=== PATIENT | female | born 1990 | race Native Hawaiian/Other Pacific Islander ===

== ENCOUNTER → 2024-06-13 09:25 | Outpatient (CLI) | payer OTHER, SELFPAY ==
[2024-06-13 13:01] LABS: Hemoglobin 11.8 g/dL (12.0-16.0)
[2024-06-13 13:37] LABS: GTT (PREG) 1 Hour PP 50gm Dose 114 mg/dL (76-139)
--- NOTE | 2024-06-13 13:53 | DI.US.S_ITS ---
PROCEDURE: US OB >= 14 WEEKS FETUS INDICATIONS: Anatomoy growth OUTSIDE/PRIOR DATING DATA: Last menstrual period (LMP): 11/01/2023. LMP-based estimated date of delivery (ANNABEL): 08/08/2024. First dating scan (date and location): 04/14/2024. Estimated date of delivery (ANNABEL) from first dating scan: 09/01/2024. TECHNIQUE: Real-time scanning was performed of the fetus, with image documentation and biometric measurements. COMPARISON: [facility], , OB >= 14 WEEKS FETUS, 06/13/2024, 9:13. FINDINGS: General: A single living intrauterine gestation is present. Presentation: Variable. Placenta: Placental position is anterior , without previa. Amniotic fluid index: 18.2 cm, normal range is 5-24 cm. Single deepest vertical pocket is 0.9 cm. heart rate: 139 beats per minute. Maternal cervical canal: 3.8 cm long. Normal lower limit is 2.5 cm. biometrics: Biparietal diameter: 7.2 cm, 28 weeks and 6 days Head circumference: 26.6 cm, 28 weeks and 6 days Abdominal circumference: 25.1 cm, 29 weeks and 2 days Femur length: 5.3 cm, 28 weeks 1 day Clinically estimated gestational age: 28 weeks and 4 days Composite gestational age from present scan: 28 weeks and 6 days Estimated weight and percentile: 1295 g, 48% Anatomic survey: Neuro: Ventricles are non-dilated at less than 10 mm. Cisterna magna is normal at 3-11 mm. Cerebellum is normal in size and morphology. Nuchal skin fold: Normal at less than 6 mm between 14-21 weeks gestational age. Face: Nose and lips, facial profile are normal. Spine: No definite skin defect at the sacral spine, however transverse sacral spine images are suboptimal. Heart: 4-chambered heart is present, with normal ventricular outflow tracts. Diaphragm: Diaphragm is intact. Stomach: Left-sided stomach is present. Kidneys: No hydronephrosis. Normal is less than 5 mm in 2nd trimester, less than 7 mm in 3rd trimester. Cord: 3-vessel cord has orthotopic insertion. Bladder: Normal in size. Extremities: All 4 extremities identified. IMPRESSION: Single living intrauterine gestation at 28 weeks and 4 days. EFW at the 48 percentile. Normal DEMOND. Sacral spine suboptimally imaged, consider follow-up. [facility] anatomy scan performed. Dictated by: Ari Jeffries M.D. on 06/13/2024 at 17:43 Approved by: Ari Jeffries M.D. on 06/13/2024 at 17:48
[2024-06-13 14:48] LABS: Urine N gonorrhoeae NOT DETECTED
[2024-06-13 14:51] LABS: Urine Chlamydia NOT DETECTED
== END ==
PROVIDERS: Referring Provider Obstetrics & Gynecology; Visit Provider Obstetrics & Gynecology
DX: Z34.83 Encounter for supervision of other normal pregnancy, third trimester (principal); Z3A.28 28 weeks gestation of pregnancy
CPT/HCPCS: 76811; 82950; 85014; 85018; 86850; 86900; 86901; 87491; 87591

== ENCOUNTER → 2024-08-10 12:22 | Outpatient (CLI) | payer OTHER, SELFPAY ==
[2024-08-11 08:36] LABS: Strep Grp B PCR POS for Grp B Strep
== END ==
PROVIDERS: Visit Provider Obstetrics & Gynecology
DX: Z34.83 Encounter for supervision of other normal pregnancy, third trimester (principal); Z3A.36 36 weeks gestation of pregnancy
CPT/HCPCS: 87653

== ENCOUNTER 2024-08-31 09:18 | Outpatient (CLI) | payer OTHER, SELFPAY ==
--- NOTE | 2024-08-31 09:27 | DI.US.S_ITS ---
PROCEDURE: US OB LIMITED INDICATIONS: Growth concerns OUTSIDE/PRIOR DATING DATA: Last menstrual period (LMP): 11/01/2023. LMP-based estimated date of delivery (ANNABEL): 08/08/2024. First dating scan (date and location): 04/14/2024. Estimated date of delivery (ANNABEL) from first dating scan: 09/01/2024. The calculations are made using the ultrasound ANNABEL of 09/01/2024. TECHNIQUE: Real-time scanning was performed of the fetus, with image documentation and biometric measurements. Biophysical profile was also obtained. Endovaginal scanning: Not performed COMPARISON: [facility], , OB >= 14 WEEKS FETUS, 06/13/2024, 14:42. FINDINGS: General: A single living intrauterine gestation is present. Presentation: Vertex. Placenta: Placental position is anterior, without previa. Amniotic fluid index: 9.6 cm, normal range is 5-24 cm. Single deepest vertical pocket is 3.6 cm. heart rate: 157 beats per minute. Maternal cervical canal: Not well seen. biometrics: Biparietal diameter: 9.7 cm, 39 weeks 5 days Head circumference: 34.9 cm, 40 weeks 4 days Abdominal circumference: 36.0 cm, 40 weeks 0 days Femur length: 7.8 cm, 39 weeks 5 days Clinically estimated gestational age: 39 weeks 6 days Composite gestational age from present scan: 40 weeks 0 days Estimated weight and percentile: 3940 g, 78th percentile Biophysical profile: Tone: 2 points. Movement: 2 points. Respiration: 2 points. Largest pocket of fluid: 2 points. IMPRESSION: 1. Bonner living intrauterine at 40 weeks 0 days based on today's ultrasound. Fetus is in the 78th percentile for weight. Vertex position. 2. Normal placenta and amniotic fluid. 3. Normal biophysical profile. Score 8/8. We strive to produce accurate, complete, and clear reports of imaging services. To assist us in improving patient care, this report was composed using standard report templates and voice recognition software. Therefore, it may contain abnormal punctuation, insertions and/or omissions. Occasional wrong-word or sound-alike substitutions may occur. Though we review the report and make efforts to correct it, we do recommend that the report be read carefully in proper context to recognize any text inaccuracies. Dictated by: Hudson Arellano M.D. on 08/31/2024 at 10:18 Approved by: Hudson Arellano M.D. on 08/31/2024 at 10:32
== END 2024-08-31 10:34 | disposition home or self-care (01) ==
LOC: LABOR 10:02 → OB 09-03 06:19
PROVIDERS: Referring Provider Obstetrics & Gynecology; Visit Provider Obstetrics & Gynecology
DX: O26.893 Other specified pregnancy related conditions, third trimester (principal); R10.2 Pelvic and perineal pain; Z3A.39 39 weeks gestation of pregnancy
CPT/HCPCS: 59025; 76815; 76819; G0378; G0379

== ENCOUNTER 2024-09-03 11:58 | Inpatient (IN) | payer OTHER, SELFPAY ==
[2024-09-03 14:44] LABS: Add Manual Diff / Slide Review NO; Basophils Absolute Auto 0 /uL (0-100); Basophils Percent Auto 0.1 % (0-2); Eosinophils Absolute Auto 100 /uL (0-450); Eosinophils Percent Auto 1.3 % (2-4); Hematocrit 40.5 % (36-46); Hemoglobin 13.2 g/dL (12.0-16.0); Lymphocytes Absolute Auto 1700 /uL (1100-4500); Lymphocytes Percent Auto 16.8 % (25-40); Mean Corpuscular HGB Conc 32.6 % (30-36); Monocytes Absolute Auto 700 /uL (0-900); Monocytes Percent Auto 7.1 % (3-14); Neutrophils Absolute Auto 7400 /uL (1500-7000); Neutrophils Percent Auto 74.7 % (50-75); Platelet Count 255 X10^3/uL (150-400); Red Blood Cell Count 5.07 X10^6/uL (4.0-5.2); Red Cell Distribution Width 14.4 % (11.6-14.8); White Blood Cell Count 9.9 X10^3/uL (4.5-11.0)
--- NOTE | 2024-09-03 18:26 | P.HPOB_ITS ---
OB HPI Date/Time Date of admission: 09/03/24 Date Patient Seen: 09/03/24 Time Patient Seen: 13:00 History of Present Condition Chief complaint: term labor ANNABEL Calculator 2 Estimated Delivery Date Method Current WG Current Estimate 09/01/24 Ultrasound #1 40w 3d Other Estimates 08/07/24 LMP (Certain) 44w 0d : 2 Para: 1 care: limited care (limited PNC prior to transfer ) Dating criteria OB: based on 2nd trimester US only Ultrasounds: normal mid trimester US Obstetrical complications: none Medical complications OB: none External History Prior Pregnancies: G1 - VAVD 5#8oz, 3rd degree OASIS : 2 Para: 1 Indications Other reason(s) for admission: augmentation of term labor Preadmission Labs Last OB Lab Results: 2 Blood Type AB Positive 09/03/24 13:30 Antibody Screen Negative 09/03/24 13:30 Hct 40.5 % (36-46) 09/03/24 13:30 Hgb 13.2 g/dL (12.0-16.0) 09/03/24 13:30 Glucose 1 Hr 50 gm 114 mg/dL (76-139) 06/13/24 10:58 Group B Strep (PCR) Pos for grp b strep H 08/10/24 12:30 -: Chlamydia screen: negative, Gonorrhea screen: negative and Urine: negative External Labs -: Urine: negative Prior (ies) Past Pregnancies Del. Date GA/Weeks Labor Lgth Wt Sex Route Outcome Anesthesia Place Delv Breastfeed Preg Comp Name 03/06/14 41 48 5 lb 8.185 oz Male vaginal vacuum live - full term none [facility] 6 months other [place] Delivery Date: 03/06/14 Last Updated by: Miguelina Weinberg, RN 3rd degree laceration Evaluation Evaluation Baseline heart rate: 140 Variability: Moderate (11-25) Monitor Decelerations: Absent Uterine Contraction Intensity: Mild Category of Tracing: Reactive Status: Category l Dilation (cm): 2 Effacement (%): 50 Dilation: 1-2 cm Effacement: 40-50% station: -3 Position of cervix: mid Consistency: soft Virk score: 5 PFSH Medical History (Updated 08/17/24 @ 10:47 by Damián Leon MD) Keloid scar Vitamin D deficiency Migraine Malaria Surgical History (Updated 06/11/24 @ 15:07 by Miguelina Weinberg RN) History of skin surgery Social History marital status: number of children: 1 (lives w/ sister in [facility]) household members: spouse lives independently: Yes caregiver/support person: No housing: apartment pets and animals: Yes (indoor cats) education level: college (bachelor's degree) 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) current occupational exposures/hazards: No special mahesh needs: No travel history: recent (only between and [place]) seatbelt use: always helmet use: Yes water heater temp set < 120 deg: Yes working smoke detector in home: Yes fire extinguisher in home: Yes carbon monox detector in home: Yes firearms in home: Yes firearms unloaded and locked: No (hidden away in closet) do you feel safe at home: Yes Smoking Status: Never smoker second hand exposure: No alcohol intake: former (~2-4 beers or glasses wine/week when not ) substance use type: does not use during the past year weight has: other (stable prior to , ~50 lb weight gain so far this ) well-balanced diet: about half the time daily servings fruits/ve-4 caffeine: Yes (occasional single cup coffee (~1/week)) Type(s) of exercise: walking additional social history: Pt's parents are physicians in [facility], father is a GP and mother is a pediatric speech therapist. Pt's other child (~10 years old) is living with her family back home in [facility]. Pt immigrated to [place] a few years ago, only came to [place] in the last couple of weeks. She was unable to get in for routine care in [place], but reports that she did have NOB labs as well as anatomy US at ~18 weeks and has a copy of these records on a flash drive; will try to sign up for portal and attach to a portal message or will bring the drive with her to her visit on Tuesday. Urgent fax message sent to [facility] in requesting all records. 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 Meds Home Medications and Allergies Home Medications Medication Instructions Recorded Confirmed Type vitamin-ferrous sulfate tab PO 06/11/24 08/31/24 History 27 mg iron-folic acid 0.8 mg tablet breast pump #1 ea 08/17/24 08/31/24 Rx Allergies Allergy/AdvReac Type Severity Reaction Status Date / Time No Known Drug Allergies Allergy Unverified 08/31/24 08:54 Review of Systems Review of Systems ROS: Yes All systems reviewed with the patient and are negative except as otherwise documented OB Exam Vital signs Blood Pressure: 120/60 Pulse Rate: 84 Respiratory Rate: 18 Temperature: 97.5 F HENMT Head: normal to inspection Resp Effort & Inspection: normal respiratory effort and able to speak in complete sentences Cardio Rate: regular rate Rhythm: regular rhythm Extremities Lower extremity: Yes normal to inspection GI Inspection: normal to inspection Other: gravid, sandy cephalic, 8.5-9# presentation confirmed with bedside US External Female Exam: Yes normal external appearance Objective Labs 09/03/24 13:30 Labs: Laboratory Results - last 24 hr 09/03/24 13:30 WBC 9.9 RBC 5.07 Hgb 13.2 Hct 40.5 MCV 80.0 MCH 26.0 MCHC 32.6 RDW 14.4 Plt Count 255 Neut % (Auto) 74.7 Lymph % (Auto) 16.8 L [place] % (Auto) 7.1 Eos % (Auto) 1.3 L Baso % (Auto) 0.1 Neut # (Auto) 7400 H Lymph # (Auto) 1700 [place] # (Auto) 700 Eos # (Auto) 100 Baso # (Auto) 0 Blood Type AB Positive Antibody Screen Negative Assessment and Plan Assessment and Plan Assessment and Plan narrative: 33yo at 40w2d by 20wk US presents in early late term labor Labor Maternal VSS/Cat 1 tracing okay for intermittent monitoring, amenable to augmentation if no interval cervical change at time of next SVE (4-6h) GBS+, start abx once active labor achieved noted high station, encourage position changes to assist with descent Patient is consented for vaginal, vaginal operative and delivery. She additionally consents to transfusion of blood products as medically indicated. anticipate vaginal delivery Time-Based Coding :: [TOTAL MINUTES] spent with patient and on the chart (including review of chart, obtaining history, exam, reviewing outside data, placing orders, documenting exam and treatment plan, and counseling patient) on [DATE].
[2024-09-03] MEDS: LACTATED RINGERS 1,000 ML 100 ML IV (18:43)
[2024-09-03] MEDS: OXYTOCIN PREMIX 30 UNIT/500 ML PLAST..BAG IV (18:44)
[2024-09-03 19:18] VITALS: BP 108/69
[2024-09-04] MEDS: LACTATED RINGERS 1,000 ML 100 ML IV ×2 (02:18→09:59)
--- NOTE | 2024-09-04 07:52 | PM.OBPNLAB ---
Date/Time Date Patient Seen: 09/04/24 Time Patient Seen: 07:52 Pain Control Pain control: tolerating well Comments: pitocin up-titrated to 14 overnight NAEON per RN no abx started as no active labor, maternal VSS/afebrile, Cat 1 tracing Pelvic Exam Dilation (cm): 2 Effacement (%): 30 station: -3 Amniotic membrane status: Intact Comments: non-engaged head Contractions Contractions on admission: regular Monitor mode: External Pitocin rate (mU/min): 14 Contraction frequency (min): 5 Contraction duration (min): 1 Contraction pattern: Regular Contraction intensity: Moderate Status status: Category l Heart Rate Baseline: 140 Monitor Accelerations: Present Monitor Decelerations: Absent Monitor Variability: Moderate Assessment and Plan Plan: Comments: 33yo at 40w3d by 20wk US, HD2 following admission for augmentation of late-term labor Failure to progress No interval cervical change despite >12h pitocin augmentation with adequate pattern patient counseled on consideration of AROM for further augmentation following adequate antibiosis versus proceeding to primary section in setting of suspected LGA , h/o maternal OASIS in G1 who weighed <6# at In shared decision making model patient desires to proceed with primary section, failure to progress in early latent labor, suspected macrosomia OR notified, anticipate procedure at 11:15am due to staffing availability unless intervening change in maternal/ status dc pitocin, NPO, continue CEFM/toco for surveillance
[2024-09-04 12:06] VITALS: BP 120/60; PULSE 84; RESP 18; TEMP 36.4
[2024-09-04] MEDS: CITRIC ACID/SODIUM CITRATE 15 ML SOLUTION 30 ML PO (13:23)
[2024-09-04] MEDS: CEFAZOLIN 2 GM/100 ML PREMIX 100 ML IV (14:23)
[2024-09-04] MEDS: ACETAMINOPHEN IV 1,000 MG/100 ML VIAL 400 MG IV (14:27)
[2024-09-04] MEDS: LACTATED RINGERS 1,000 ML 42 ML IV (14:45)
--- NOTE | 2024-09-04 14:49 | SUR.OPER ---
Supine on Padded OR bed, head on pillow, safety belt at thigh, arms secured on padded arm boards at <90 degrees abduction. Bump under right buttock. Legs uncrossed with pillow under knees, gel pad to heels, tape over blanket to lower legs.
[2024-09-04 15:48] VITALS: BP 109/69; PULSE 66; RESP 19; TEMP 36.3; O2SAT 100
[2024-09-04 15:53] VITALS: BP 113/59; PULSE 72; RESP 17; O2SAT 100
--- NOTE | 2024-09-04 15:55 | PM.OP.1 ---
Operative Date/Time/Diagnoses Date of procedure: 09/04/24 Time of procedure: 15:55 Pre-op diagnosis: failure to progress Post-op diagnosis: same Procedure & Clinicians Procedure: primary low transverse section Same procedure as scheduled: Yes Indications: 1) IUP at 40w3d 2) failure to progress in first stage Surgeon: Renee Espinoza [employer] Technician: Heavenly Lester Click Yes if Unassisted: No Anesthesia Type: Spinal Operative Notes Findings: live born male in cephalic presentation grossly normal uterus, bilateral adnexae Estimated Blood Loss (mL): 1,000 Procedure in detail: Pt was taken to the operating room and transferred to OR table.? The spinal was placed per anesthesia.? The patient was placed in the supine position, prepped and draped in a sterile fashion.? Prior to incision the level of anesthesia was rechecked and found to be adequate.? A timeout was once again performed. A pfannensteil incision was made 2cm superior to the pubic symphysis.? This incision was carried down sharply to the level of the rectus fascia.? The fascia was incised sharply with knife and the incision was extended bilaterally and superiorly using sosa scissors. The superior border of the fascia was elevated with two Bhargavi clamps and bluntly dissected off of the rectus muscles followed by incision of the median raphe with the sosa scissors.? Attention was then turned to the inferior border of the fascia which was dissected away from the underlying musculature in a similar manner down to the level of the pubic symphysis.? The rectus muscles were then in the midline and the peritoneum was identified.? The peritoneum was entered bluntly under direct visualization.? The peritoneal opening was then extended manually.? The slitter cut off operator?s hand was inserted in the abdomen and the uterus was found to be in a levo-rotated position. The bladder blade was then inserted. The vesicouterine peritoneum was identified, elevated using DeBakey forceps and incised in the midline using Metzenbaum scissors.? The incision was carried laterally and superiorly bilaterally.? A bladder flap was further developed digitally and the bladder blade was replaced.? Next, a low transverse incision was made in the uterus using the knife.? The incision was extended laterally and superiorly bilaterally bluntly.? The slitter cut off operator?s hand was then inserted into the uterus to find an in the vertex OP position.? The bladder blade was removed and ?s vertex was grasped, flexed and brought to the incision where the was delivered atraumatically using fundal pressure.? The cord was doubly clamped and cut.? The infant was then passed to waiting pediatricians.? The placenta was delivered via gentle traction with additional manual extraction as necessary; the placenta was then passed off the field. ? The uterus was exteriorized and the uterine cavity was wiped of all clots and debris.? The bladder blade was reinserted and the hysterotomy incision was repaired with #0 vicryl in a running locked fashion, followed by a second #0 vicryl in an imbricating fashion.? A midline tear in the uterine serosa was identified with persistent bleeding, oversewn with figure of 8 x2 with subsequent hemostasis noted. Tubes, ovaries and adnexae were visualized and noted to be grossly normal in appearance.? The uterus was replaced into the abdomen without difficulty and the hysterotomy was noted to be hemostatic off of tension.? PerClot placed for additional hemostasis prophylaxis. The rectus fascia was closed using #1 vicryl in a running fashion.? The incision was irrigated and hemostasis was achieved using the bovie.? The subcutaneous space was reapproximated using plain gut suture in a running fashion.? The skin was closed using 4-0 monocryl followed by application of steristrips and abdominal compression dressing.? All counts were correct x2.? The pt tolerated the procedure well and without difficulty. Fundal contents were expressed and fundus noted to be firm, level noted prior to patient transfer to PACU in stable condition.? Complications: none Post-operative Condition: stable Disposition: PACU Plan for aftercare: routine /postoperative care
[2024-09-04 15:58] VITALS: BP 120/70; PULSE 86; RESP 20; O2SAT 100
[2024-09-04 16:05] VITALS: BP 108/77; PULSE 71; RESP 16; TEMP 36.1; O2SAT 100
[2024-09-04 21:41] LABS: Add Manual Diff / Slide Review NO; Basophils Absolute Auto 0 /uL (0-100); Basophils Percent Auto 0.2 % (0-2); Eosinophils Absolute Auto 0 /uL (0-450); Eosinophils Percent Auto 0.1 % (2-4); Hematocrit 32.6 % (36-46); Hemoglobin 10.7 g/dL (12.0-16.0); Lymphocytes Absolute Auto 800 /uL (1100-4500); Lymphocytes Percent Auto 5.9 % (25-40); Mean Corpuscular HGB Conc 32.8 % (30-36); Mean Corpuscular Volume 79.3 fL (80-100); Monocytes Absolute Auto 700 /uL (0-900); Neutrophils Absolute Auto 11800 /uL (1500-7000); Neutrophils Percent Auto 88.8 % (50-75); Platelet Count 204 X10^3/uL (150-400); Red Blood Cell Count 4.11 X10^6/uL (4.0-5.2); White Blood Cell Count 13.3 X10^3/uL (4.5-11.0)
[2024-09-04] MEDS: KETOROLAC 30 MG/ML VIAL IV (21:42)
[2024-09-05] MEDS: KETOROLAC 30 MG/ML VIAL IV ×2 (04:02→10:11)
[2024-09-05] MEDS: LANOLIN OINT 7 GM 1 APPLIC TOP (09:25)
[2024-09-05 09:27] VITALS: TEMP 36.6
[2024-09-05] MEDS: ACETAMINOPHEN 325 MG TABLET 650 MG PO ×3 (09:27→22:08)
[2024-09-05] MEDS: PRENATAL VIT,CALC/IRON/FOLIC 1 TABLET 1 TAB PO (09:27)
[2024-09-05 10:11] VITALS: TEMP 36.6
--- NOTE | 2024-09-05 17:24 | P.PNOB_ITS ---
Subjective - OB Subjective Patient comments: no complaints and pain well controlled (with Tylenol and Ibuprofen) baby status: doing well and nursing well [place] feeding status: exclusively breast feeding Date Patient Seen: 09/05/24 Time Patient Seen: 11:30 Interval history: POD #1 s/p primary C section for a stage 1 arrest of labor. Has not voided yet. Catheter removed at 0630 am. Pain well controlled with Tylenol and Ibuprofen. Bleeding tapering. Passing flatus. Exam Vital Signs (past 8 hours): - 09/05/24 09:27 09/05/24 10:11 Temperature 97.8 F 97.8 F Oxygen Delivery Method Room Air Oxygen Flow Rate 0 Narrative Exam Narrative: Gen: Patient sitting up in bed, NAD Lungs: CTA bilat CV: RRR Abd: Appropriately tender. Fundus: Firm at U Incision: C/D/I with bandage Ext: Trace edema, negative Sai's Objective Labs 09/04/24 21:33 Labs: Laboratory Results - last 24 hr 09/04/24 21:33 WBC 13.3 H RBC 4.11 Hgb 10.7 L Hct 32.6 L MCV 79.3 L MCH 26.0 MCHC 32.8 RDW 14.0 Plt Count 204 Neut % (Auto) 88.8 H Lymph % (Auto) 5.9 L [place] % (Auto) 5.0 Eos % (Auto) 0.1 L Baso % (Auto) 0.2 Neut # (Auto) 28573 H Lymph # (Auto) 800 L [place] # (Auto) 700 Eos # (Auto) 0 Baso # (Auto) 0 Assessment & Plan Plan day: 1 plan OB: routine postop care Comments: Have patient try to void in the next 30min, if not able, straight cath Ambulate Anticipate discharge 09/06/24 Time-Based Coding :: [TOTAL MINUTES] spent with patient and on the chart (including review of chart, obtaining history, exam, reviewing outside data, placing orders, documenting exam and treatment plan, and counseling patient) on [DATE].
[2024-09-05] MEDS: IBUPROFEN 600 MG TABLET PO ×2 (17:36→23:46)
[2024-09-06] MEDS: ACETAMINOPHEN 325 MG TABLET 650 MG PO ×3 (03:58→18:49)
[2024-09-06] MEDS: IBUPROFEN 600 MG TABLET PO ×2 (06:23→14:57)
[2024-09-06 10:19] VITALS: TEMP 36.8
[2024-09-06] MEDS: PRENATAL VIT,CALC/IRON/FOLIC 1 TABLET 1 TAB PO (10:19)
[2024-09-06] MEDS: DOCUSATE 100 MG CAPSULE 200 MG PO (10:29)
--- NOTE | 2024-09-06 16:38 | P.DS_ITS ---
Discharge Providers Provider Date of admission: 09/03/24 11:58 Discharge Date: 09/06/24 Primary care physician: Doctor Franchesca MD Consults: 09/03/24 14:14 Consult to Anesthesiology Urgent Comment: Consulting Provider: Anesthesiologist Reason for consultation: Epidural 09/04/24 16:56 Consult to Automation Machine Builder Routine Comment: Discharge provider: Damián Leon MD Summary Hospital Course Date Patient Seen: 09/06/24 Time Patient Seen: 09:00 Diagnoses: Intrauterine , 40+ 3 weeks, delivered by primary section macrosomia Secondary arrest of descent and dilatation in the 1st stage GBS positive status Hospital Course: Louise was admitted at 40+ 2 weeks gestational age and received Pitocin augmentation of her labor for greater than 24 hours. Unfortunately the vertex never descended into the pelvis and after counseling regarding all available options for delivery, patient underwent a primary section for failed induction /failure to progress of the 1st stage on 09/04/2024. She delivered a viable male infant with a weight of a proximally 9 lb by low transverse cervical . Following delivery both mother and baby have done extremely well with the mother experiencing prompt return of bowel and bladder function, she is ambulating independently, tolerating regular diet, and her pain is well controlled with oral pain medication. She will be discharged at this time to home in an afebrile normotensive condition after counseling regarding precautionary symptoms, limitations activity, medications, and plans for follow- up which will be in 1 week. Medications will include resumption of all preadmission medications as well as oxycodone 5 mg every 4 hours as needed for pain, dispense 20 with no refills, and ibuprofen 600 mg p.o. q.6 hours as needed for pain. Peripartum Data Delivery Method: Section Laceration Description: None Episiotomy description: None Procedures: Spinal block anesthetic Primary section (low transverse cervical) complications: none Rhodell 1: Gender: Male Disposition of : home Status at Discharge Cognitive/behavioral status at discharge: oriented Functional status at discharge: independent ambulation Overall status at discharge: patient is progressing back to baseline Time Spent with Patient Time attestation: Total time spent providing and/or coordinating discharge services: Time spent: Less than 30 minutes Objective Labs 09/04/24 21:33 Exam Vital Signs (past 8 hours): - 09/06/24 10:19 Temperature 98.2 F Oxygen Delivery Method Room Air Oxygen Flow Rate 0 Const General: cooperative and comfortable Nutritional Appearance: average body habitus Orientation: alert and oriented x3 HENMT Head: normal to inspection, atraumatic and abrasion Ears: hearing grossly normal bilaterally Face and sinus: face symmetric Eyes General: appearance normal, both eyes and all related structures Conjunctivae: conjunctivae normal Sclera: sclerae normal EOM: EOM intact bilaterally Neck Neck: normal visual inspection Resp Effort & Inspection: normal respiratory effort and able to speak in complete sentences Auscultation: clear to auscultation bilaterally Cardio Rate: regular rate Rhythm: regular rhythm Heart Sounds: S1 normal, S2 normal and no murmurs GI Inspection: normal to inspection and incision (Surgical dressing clean and dry) Palpation: soft, no hepatosplenomegaly and tender (Mild, diffuse postsurgical tenderness) External Female Exam: other (No significant bleeding noted) Extrem General: no calf tenderness Psych Appearance: grossly normal Mental Status: mental status grossly normal Speech and Movement: speech and movement normal Mood: congruent mood Affect: normal affect Attitude: cooperative Thought Process: normal Thought Content: normal Judgment: judgment good Discharge Plan Discharge Plan Patient Disposition: Home Provider Discharge Comment: Please review the written instructions you received when you were discharged from the hospital. Your follow-up appointment will be scheduled for 1 week after your delivery and I look forward to seeing you then. If however you have any issues, concerns, or questions, please contact the office either by phone at [phone], or via the patient portal. Discharge orders & Medications Prescriptions: New ibuprofen 600 mg Tablet 600 mg PO Q6H Qty: 30 2RF oxycodone 5 mg Tablet 5 mg PO Q4H PRN (Reason: Pain, Moderate (4-6)) Qty: 20 0RF Continued vit-ferrous sulfat-FA 27 mg iron- 0.8 mg tablet PO No Action (DME) breast pump Device See Rx Instructions .ROUTE .MEDSUPPLY Qty: 1 0RF Rx Instructions: double electric breast pump Follow up/Referrals: Miscellaneous,Doctor, [Primary Care Provider] - Damián Leon MD [Physician] - 6 Weeks (Please follow up for a one week incision check on 09/11 @ 1030 am. Please follow up for a 6 week check up on 10/16 @ 1000am. ) Discharge Health Status Multidrug resistant organism: No MDRO Diet/Activity/Treatments Diet: Diet as Tolerated Activity: As tolerated Other treatments: Rbok-pea-eyflazb Tylenol may be used for additional pain relief. Vdti-hwf-dnvhnqf stool softeners and/or MiraLax may be used as needed for constipation. Skin/Wound/Dressing Care Report to your healthcare provider any signs of infection, such as:: chills, fever, increased pain, unusual drainage and unusual redness Dressing: Dressing will be removed at the time of your one-week postop visit Visit Report/Discharge Packet Instructions: DI for , DI for and Nipple Soreness, DI for Prescription Opioid Use Stand Alone Forms: Discharge: Care, Patient Portal/API, Stroke Signs & Symptoms Discharge Data Primary Care Provider: Miscellaneous,Doctor
== END 2024-09-06 19:51 | disposition home or self-care (01) | DRG 788 ==
PROVIDERS: Obstetrics & Gynecology; Admitting Provider Obstetrics & Gynecology; Referring Provider Obstetrics & Gynecology; Visit Provider Obstetrics & Gynecology
PROC: 10D00Z1 Extraction of Products of Conception, Low, Open Approach (ICD-10-PCS; CPT 59514; principal; 2024-09-04 11:30)
DX: O61.0 Failed medical induction of labor (principal); O62.1 Secondary uterine inertia; Z3A.40 40 weeks gestation of pregnancy; Z37.0 Single live birth
CPT/HCPCS: 36415; 59050; 85025; 86850; 86900; 86901; G0379; J0134; J0690; J1100; J1885; J2274; J2405; J2590

== ENCOUNTER 2025-06-30 22:26 | Emergency (ER) | payer OTHER, SELFPAY ==
[2025-06-30] VITALS (7 sets, daily range): BP systolic 120–123; BP diastolic 63–83; PULSE 67–78; RESP 16–25; TEMP 36.8; O2SAT 99–100; BMI 32.9
--- NOTE | 2025-06-30 22:32 | EKG_ITS ---
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
--- NOTE | 2025-06-30 23:10 | DI.RAD.S_ITS ---
PROCEDURE: XR CHEST 2V INDICATIONS: chest pain, cough TECHNIQUE: 2 views of the chest were acquired. COMPARISON: None. FINDINGS: Surgical changes and devices: None. Lungs and pleura: Lungs are clear. No pleural effusions or pneumothorax. Mediastinum: Mediastinal contours are normal. Heart size is normal. Bones and chest wall: No suspicious bony abnormalities. Soft tissues appear unremarkable. IMPRESSION: No acute cardiopulmonary abnormality is seen. Dictated by: Navi Church M.D. on 06/30/2025 at 23:55 Approved by: Navi Church M.D. on 06/30/2025 at 23:55
[2025-06-30 23:14] LABS: Add Manual Diff / Slide Review NO; Hematocrit 39.4 % (36-46); Hemoglobin 13.1 g/dL (12.0-16.0); Lymphocytes Absolute Auto 3300 /uL (1100-4500); Mean Corpuscular HGB Conc 33.3 % (30-36); Mean Corpuscular Hemoglobin 25.0 PG (26-34); Mean Corpuscular Volume 75.1 fL (80-100); Platelet Count 249 X10^3/uL (150-400)
[2025-06-30 23:19] LABS: Strep Grp A by PCR Rapid Negative (Negative)
[2025-06-30 23:20] LABS: INR 1.1 (0.9-1.3); Prothrombin Time 12.2 SECONDS (9.4-12.5)
--- NOTE | 2025-06-30 23:22 | PC.NURSE ---
Pt ambulatory to imaging with imaging clerk
[2025-06-30 23:23] LABS: PTT Partial Thromboplastin Tim 30 SECONDS (25.1-36.5)
[2025-06-30] MEDS: KETOROLAC 30 MG/ML VIAL 15 MG IV (23:25)
[2025-06-30 23:27] LABS: Alanine Aminotransferase 31 IU/L (<35); Albumin 4.5 g/dL (3.5-5.0); Albumin Globulin Ratio 1.2 (1.0-2.8); Alkaline Phosphatase 57 U/L (38-126); Blood Urea Nitrogen 10 mg/dL (7-17); Calcium 9.3 mg/dL (8.4-10.2); Carbon Dioxide 27 mmol/L (22-32); Chloride 102 mmol/L (98-107); Creatine Kinase 135 U/L (30-135); Estimated Glomerular Filt Rate > 60 mL/min (>60); Globulin 3.9 g/dL (1.7-4.1); Glucose 110 mg/dL (70-99); HEMOLYSIS 17 (0-50); Lipase 236 U/L (23-300); Magnesium 1.6 mg/dL (1.6-2.3); Potassium 3.8 mmol/L (3.4-5.1); Sodium 136 mmol/L (137-145); Total Protein 8.4 g/dL (6.3-8.2)
[2025-06-30 23:39] LABS: NT-proBNP (BNP-Adult 18+) < 20 pg/mL (<125); Troponin I < 0.012 ng/mL (0.01-0.034)
[2025-06-30 23:51] LABS: Influenza A - CEPHEID Flu A NEGATIVE (NEGATIVE); Influenza B - CEPHEID Flu B NEGATIVE (NEGATIVE)
[2025-06-30 23:52] LABS: COVID-19 CEPHEID 4-PLEX PCR Negative (Negative)
[2025-07-01] VITALS: BP 110/77
[2025-07-01 00:02] VITALS: PULSE 69; RESP 19; O2SAT 100
--- NOTE | 2025-07-01 00:16 | ED.CHESTPAIN ---
HPI - Chest Pain General Chief Complaint: Chest Pain Stated Complaint: ChestPain, L shoulder Pain Time Seen by Provider: 06/30/25 22:46 Source: patient Mode of arrival: Ambulatory Limitations: no limitations History of Present Illness HPI narrative: 34-year-old female with no cardiac history presents with left-sided sharper chest pain that has been persistent along with left scapula area pain that has been persistent for the past 2 days and does not seem to go away. She denies any shortness of breath but has had a cough since the pain has initiate as well. She denies any other symptoms. Related Data Home Medications ?Medication ?Instructions ?Recorded ?Confirmed vitamin-ferrous sulfate tab PO 06/11/24 09/11/24 27 mg iron-folic acid 0.8 mg tablet Previous Rx's ?Medication ?Instructions ?Recorded breast pump #1 ea 08/17/24 Allergies Allergy/AdvReac Type Severity Reaction Status Date / Time No Known Drug Allergies Allergy Unverified 06/30/25 22:48 Review of Systems Review of Systems ROS Unobtainable: All systems reviewed & are unremarkable except as noted in HPI and below Patient History Medical History (Updated 07/01/25 @ 01:54 by Samy oMntiel MD) Keloid scar Vitamin D deficiency Migraine Malaria Surgical History (Updated 06/11/24 @ 15:07 by Miguelina Weinberg RN) History of skin surgery Social History marital status: number of children: 1 (lives w/ sister in [place] [facility]) household members: spouse lives independently: Yes caregiver/support person: No housing: apartment pets and animals: Yes (indoor cats) education level: college (bachelor's degree) occupational status: previously employed (worked in a [employer] home) current occupational exposures/hazards: No special mahesh needs: No travel history: recent (only between and [place]) seatbelt use: always helmet use: Yes water heater temp set < 120 deg: Yes working smoke detector in home: Yes fire extinguisher in home: Yes carbon monox detector in home: Yes firearms in home: Yes firearms unloaded and locked: No (hidden away in closet) do you feel safe at home: Yes Smoking Status: Never smoker second hand exposure: No alcohol intake: former (~2-4 beers or glasses wine/week when not ) substance use type: does not use during the past year weight has: other (stable prior to , ~50 lb weight gain so far this ) well-balanced diet: about half the time daily servings fruits/ve-4 caffeine: Yes (occasional single cup coffee (~1/week)) Type(s) of exercise: walking additional social history: Pt's parents are physicians in [facility], father is a GP and mother is a fabric sourcer. Pt's other child (~10 years old) is living with her family back home in [place] [facility]. Pt immigrated to [place] a few years ago, only came to [place] in the last couple of weeks. She was unable to get in for routine care in [place], but reports that she did have [facility] labs as well as anatomy [place] at ~18 weeks and has a copy of these records on a flash drive; will try to sign up for portal and attach to a portal message or will bring the drive with her to her visit on Tuesday. Urgent fax message sent to [facility] in requesting all records. 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 Smoking Status: Never smoker Exam Narrative Exam Narrative: General: Patient appears to be in no acute distress, acting appropriately Head: normocephalic, atraumatic, HEENT: Pupils equal round reactive, eyes tracking well, neck supple, no JVD Heart: regular rate and rhythm, no murmurs, rubs, or gallops heard Lungs: clear to auscultation, no adventitious sounds Abdomen: soft , nontender, nondistended, positive bowel sounds Neurological: no focal neurological signs, moving all extremities well, alert and oriented x3, Psych: good judgment ,good insight, mood is normal. Initial Vital Signs Initial Vital Signs: Vital Signs Pulse Rate 78 06/30/25 22:43 Pulse Oximetry 99 06/30/25 22:43 Scores HEART Score Heart Score history: Slightly Suspicious Heart Score EKG: Normal Heart Score Age: < 45 years old Heart Score risk factors: No known risk factors Heart Score troponin: < or = to normal limit Heart Score Total: 0 Course Orders Ordered: ED Orders 06/30/25 22:32 EKG-12 Lead Stat 06/30/25 22:52 EKG-12 Lead Stat 06/30/25 23:04 Complete Blood Count AUTO DIFF Stat Comprehensive Metabolic Panel Stat Lipase Stat Magnesium Stat NT-proBNP (BNP-Adult 18+) Stat PTT Partial Thromboplastin Brennan Stat Prothrombin Time INR Stat Troponin & CK Cardiac Panel Stat 06/30/25 23:07 Covid-19 + FLU A/B + RSV - PCR Stat Strep Grp A by PCR Rapid Stat 06/30/25 23:10 CXR [XR chest 2V] Stat 07/01/25 01:10 Troponin I Stat Discontinued Medications Aspirin (Aspirin 81 Mg Chew Tab) 324 mg PO NOW ONE Stop: 06/30/25 22:53 Last Admin: 06/30/25 23:13 Dose: Not Given Documented By: CADE Cyclobenzaprine HCl (Cyclobenzaprine 10 Mg Tablet) 10 mg PO NOW ONE Stop: 07/01/25 00:35 Last Admin: 07/01/25 00:42 Dose: 10 mg Documented By: CADE Cyclobenzaprine HCl (Cyclobenzaprine 10 Mg Prepack) 1 bottle MISC DIRECTED ONE Stop: 07/01/25 01:38 Last Admin: 07/01/25 01:43 Dose: 1 bottle Documented By: CADE Ketorolac Tromethamine (Ketorolac 30 Mg/Ml Vial) 15 mg IV NOW ONE Stop: 06/30/25 23:19 Last Admin: 06/30/25 23:25 Dose: 15 mg Documented By: CADE Reevaluation(s) Reevaluation #1: Upon re-evaluation after Toradol, patient's pain has subsided some but still present a bit. Reevaluation #2: Upon 2nd re-evaluation, 2nd set of troponin negative and patient's symptoms have subsided completely after the cyclobenzaprine. Vital Signs Vital signs: Vital Signs - 8 hr 06/30/25 22:43 06/30/25 22:44 06/30/25 22:44 Temperature Pulse Rate 78 77 Respiratory Rate 18 Blood Pressure 123/83 Pulse Oximetry 99 100 Oxygen Delivery Method Room Air 06/30/25 22:47 06/30/25 23:00 06/30/25 23:00 Temperature 98.3 F Pulse Rate 73 72 Respiratory Rate 17 25 H Blood Pressure 123/83 123/83 Pulse Oximetry 99 100 Oxygen Delivery Method Room Air Room Air 06/30/25 23:29 06/30/25 23:29 06/30/25 23:30 Temperature Pulse Rate 70 Respiratory Rate 16 Blood Pressure 122/81 120/63 Pulse Oximetry 100 Oxygen Delivery Method Room Air 06/30/25 23:30 06/30/25 23:57 07/01/25 00:00 Temperature Pulse Rate 73 67 Respiratory Rate 19 24 Blood Pressure 110/77 Pulse Oximetry 99 99 Oxygen Delivery Method Room Air Room Air 07/01/25 00:02 07/01/25 00:30 07/01/25 00:30 Temperature Pulse Rate 69 67 Respiratory Rate 19 25 H Blood Pressure 116/71 Pulse Oximetry 100 99 Oxygen Delivery Method Room Air Room Air 07/01/25 01:00 07/01/25 01:00 07/01/25 01:43 Temperature Pulse Rate 65 64 Respiratory Rate 21 19 Blood Pressure 107/66 111/64 Pulse Oximetry 99 98 Oxygen Delivery Method Room Air Room Air MDM - Chest Pain Lab Data 06/30/25 23:04 06/30/25 23:04 Labs: Lab Results 06/30/25 06/30/25 07/01/25 Range/Units 23:04 23:07 01:10 WBC 10.9 (4.5-11.0) X10^3/uL RBC 5.24 H (4.0-5.2) X10^6/uL Hgb 13.1 (12.0-16.0) g/dL Hct 39.4 (36-46) % MCV 75.1 L (80-100) fL MCH 25.0 L (26-34) PG MCHC 33.3 (30-36) % RDW 13.2 (11.6-14.8) % Plt Count 249 (150-400) X10^3/uL Neut % (Auto) 62.4 (50-75) % Lymph % (Auto) 29.9 (25-40) % Cottle % (Auto) 5.4 (3-14) % Eos % (Auto) 2.1 (2-4) % Baso % (Auto) 0.2 (0-2) % Neut # (Auto) 6800 (4298-1355) /uL Lymph # (Auto) 3300 (3466-2580) /uL Cottle # (Auto) 600 (0-900) /uL Eos # (Auto) 200 (0-450) /uL Baso # (Auto) 0 (0-100) /uL PT 12.2 (9.4-12.5) SECONDS INR 1.1 (0.9-1.3) APTT 30 (25.1-36.5) SECONDS Sodium 136 L (137-145) mmol/L Potassium 3.8 (3.4-5.1) mmol/L Chloride 102 (98-107) mmol/L Carbon Dioxide 27 (22-32) mmol/L BUN 10 (7-17) mg/dL Creatinine 0.73 (0.52-1.04) mg/dL Estimated GFR > 60 (>60) mL/min BUN/Creatinine Ratio 13.7 (6-22) Glucose 110 H (70-99) mg/dL Calcium 9.3 (8.4-10.2) mg/dL Magnesium 1.6 (1.6-2.3) mg/dL Total Bilirubin 0.3 (0.2-1.3) mg/dL AST 31 (14-36) IU/L ALT 31 (<35) IU/L Alkaline Phosphatase 57 (38-126) U/L Total Creatine Kinase 135 (30-135) U/L Troponin I < 0.012 < 0.012 (0.01-0.034) ng/mL NT-Pro-B Natriuret Pep < 20 (<125) pg/mL Total Protein 8.4 H (6.3-8.2) g/dL Albumin 4.5 (3.5-5.0) g/dL Globulin 3.9 (1.7-4.1) g/dL Albumin/Globulin Ratio 1.2 (1.0-2.8) Lipase 236 (23-300) U/L SARS-CoV-2 (PCR) Negative (Negative) Influenza A (RT-PCR) Flu a negative (NEGATIVE) Influenza B (RT-PCR) Flu b negative (NEGATIVE) RSV (PCR) Negative (Negative) Group A Strep (PCR) Negative (Negative) Imaging Data Chest x-ray: Radiologist's Impression: No acute cardiopulmonary abnormality seen ECG Data Interpretation: EKG shows a normal sinus rhythm, normal axis, rate of 78 beats per minute, normal MT intervals, T-wave abnormality in anterior leads. No previous EKG for comparison MDM Narrative Medical decision making narrative: 34-year-old female with a heart score of 0 presents with atypical chest pain that is sharp in nature and also in the scapular region. Patient's pain subsided completely with some Toradol and Flexeril. The patient's EKG chest x-ray labs were reassuring. Patient advised to continue using the Flexeril as needed and can follow up if symptoms worsen or new symptoms arise. Discharge Plan Departure Patient Disposition: Home Clinical Impression: Atypical chest pain Instructions: DI for Atypical Chest Pain Activity Restrictions/Additional Instructions: Use muscle relaxants as needed. Atypical chest pain less likely cardiac in origin. Can come back if having worsening chest pain or new symptoms. Prescriptions: No Action vit-ferrous sulfat-FA 27 mg iron- 0.8 mg tablet PO (DME) breast pump Device See Rx Instructions .ROUTE .MEDSUPPLY Qty: 1 0RF Rx Instructions: double electric breast pump Referrals: Miscellaneous,Doctor, MD [Primary Care Provider, Medical] Stand Alone Forms: Patient Portal/API
[2025-07-01 00:30] VITALS: BP 116/71; PULSE 67; RESP 25; O2SAT 99
[2025-07-01] MEDS: CYCLOBENZAPRINE 10 MG TABLET PO (00:42)
[2025-07-01 01:00] VITALS: BP 107/66; PULSE 65; RESP 21; O2SAT 99
[2025-07-01 01:43] VITALS: BP 111/64; PULSE 64; RESP 19; O2SAT 98
[2025-07-01 01:43] LABS: Troponin I < 0.012 ng/mL (0.01-0.034)
[2025-07-01] MEDS: CYCLOBENZAPRINE 10 MG PREPACK 1 BOTTLE MISC (01:43)
== END 2025-07-01 02:06 | disposition home or self-care (01) ==
PROVIDERS: Emergency Provider Family Medicine
DX: R07.89 Other chest pain (principal); M25.512 Pain in left shoulder
CPT/HCPCS: 36415; 71046; 80053; 82550; 83690; 83735; 83880; 84484; 85025; 85610; 85730; 87637; 87651; 93005; 93010; 96374; 99284; J1885